=== PATIENT | male | born 1950 | race Caucasian/White ===

== ENCOUNTER → 2021-03-31 | Day surgery (SDC) | payer MEDICARE, BC ==
[~2021-03-31] MED LIST: Ketamine 200 MG/20 ML MDV ONE; Lidocaine 2% 5 ML SDV ONE; Propofol 200 MG/20 ML SDV ONE; ePHEDrine 50 MG/ML SDV ONE; fentaNYL 100 MCG/2 ML SDV ONE
[2021-03-31] MEDS: Lactated Ringers 1,000 ML IV SCH (08:03)
--- NOTE | 2021-03-31 16:19 | OR ---
DATE OF OPERATION: 03/31/2021 PREOPERATIVE DIAGNOSIS: HISTORY OF POLYPS. POSTOPERATIVE DIAGNOSIS: HISTORY OF POLYPS. SURGEON: Geovany Wu MD PROCEDURE: FULL-LENGTH COLONOSCOPY WITH SNARE POLYPECTOMY X2, FORCEPS POLYP REMOVAL X3. ANESTHESIA: MAC. COMPLICATIONS: None. SPECIMEN: 1. Villous polyp of cecum. 2. Small tubular adenoma, proximal ascending colon. 3. Rectosigmoid polyp. 4. Three small hyperplastic polyps in rectal vault. FINDINGS: 1. Full-length surveillance colonoscopy. 2. Large villous lesion, cecal pouch. 3. Small tubular adenoma, ascending colon. 4. Tubular adenoma, rectosigmoid junction. 5. Hyperplastic polyps x2, rectal vault. 6. Pandiverticulosis, moderate in the sigmoid colon. RECOMMENDATIONS: The patient's larger flat villous lesion in the cecum will need definitive care, appears to be benign, but due to its size and it occupies quite a bit of mucosa, recommend surgical consultation with Dr. Warner. INDICATIONS: The patient is well overdue for a prior scope. He believes his last scope was 12 or 13 years ago where he had a couple of polyps removed. He is in for a followup in that regard. DESCRIPTION OF PROCEDURE: The patient was prepped and draped, placed in the left lateral decubitus position. A lubricated Olympus colonoscope was inserted and easily advanced to the cecum. Direct visualization of the ileocecal valve and appendiceal orifice was accomplished. The bowel prep was adequate. Upon withdrawal of the scope right in the cecal pouch along the haustral fold, the patient had a large bulky or villous lesion, appears benign, but just due to its sheer size was difficult to remove. We took out 4 separate sections with a snare, and when we got down to its base, there was a significant amount of mucosal lining occupied, felt it was safe to leave this for definitive surgical care. Just past that in the immediate proximal ascending colon, the patient had another small tubular adenoma removed with a snare and suctioned into polyp trap #2. The rest of the ascending and transverse colons appeared benign. The patient does have pandiverticular disease, very mild in the right and transverse colon, but he does have moderate disease in the sigmoid and rectosigmoid areas. In the rectosigmoid region around 20 cm, the patient had another small tubular adenoma removed with a forceps in its entirety. In the proximal rectal vault, the patient did have a small cluster of hyperplastic polyps. There were 3 identified and all removed with forceps without any complication. Retroflexion of the scope in the rectum showed some perianal hemorrhoid disease, otherwise unremarkable. Air was then suctioned. The scope removed without complication. YOLANDA/CLARISA /[id number]
== END ==
LOC: CC.SDS 07:41
PROVIDERS: ATTEND Family Medicine
DX: Z12.11 Encounter for screening for malignant neoplasm of colon (principal); D12.0 Benign neoplasm of cecum; D12.2 Benign neoplasm of ascending colon; K62.5 Hemorrhage of anus and rectum; K57.30 Diverticulosis of large intestine without perforation or abscess without bleeding; K64.8 Other hemorrhoids; I10 Essential (primary) hypertension; E78.5 Hyperlipidemia, unspecified; N40.1 Benign prostatic hyperplasia with lower urinary tract symptoms; R35.1 Nocturia; I25.2 Old myocardial infarction; E55.9 Vitamin D deficiency, unspecified; Z79.82 Long term (current) use of aspirin; Z79.899 Other long term (current) drug therapy; Z90.49 Acquired absence of other specified parts of digestive tract; Z88.8 Allergy status to other drugs, medicaments and biological substances; Z87.891 Personal history of nicotine dependence
CPT/HCPCS: 00812; 45380; 45385; 88305; 99100; J2704; J3010; J7120

== ENCOUNTER → 2023-05-03 | Day surgery (SDC) | payer MEDICARE, BC ==
[~2023-05-03] MED LIST changes: +Lactated Ringers 1,000 ML IV SCH; -Lidocaine 2% 5 ML SDV ONE; -ePHEDrine 50 MG/ML SDV ONE; -fentaNYL 100 MCG/2 ML SDV ONE; +fentaNYL 50 MCG/ML SDV ONE
== END ==
LOC: CC.SDS 07:13
PROVIDERS: ATTEND Family Medicine
DX: Z12.11 Encounter for screening for malignant neoplasm of colon (principal); K63.5 Polyp of colon; K57.30 Diverticulosis of large intestine without perforation or abscess without bleeding; K64.9 Unspecified hemorrhoids; Z79.899 Other long term (current) drug therapy; Z79.82 Long term (current) use of aspirin
CPT/HCPCS: 00811; 45380; 88305; 99100; J2704; J3010; J3490; J7120